=== PATIENT | female | born 1995 | race African-American/Black ===

== ENCOUNTER 2017-01-26 04:22 | Observation (INO) | payer OTHER ==
[~2017-01-26] VITALS: Ht 154.9 cm; Wt 46.7 kg
[2017-01-26 05:11] LABS: Basophils # (auto) 0 uL; Basophils % (auto) 0.2 % (0.0-2.0); Eosinophils # (auto) 0 uL; Hematocrit 33.7 % (36.0-46.0); Hemoglobin 11.5 g/dL (12.2-16.2); Lymphocytes # (auto) 1.6 uL; Lymphocytes % (auto) 9.6 % (10.0-50.0); Mean Corpuscular Hemoglobin 30.9 pg (28.0-32.0); Mean Corpuscular Hgb Conc. 34.2 g/dL (32.0-36.0); Mean Corpuscular Volume 90.4 fL (80.0-100.0); Mean Platelet Volume 8.3 fL (7.4-10.4); Monocytes % (auto) 5.9 % (0.0-12.0); Neutrophils # (auto) 13.7 uL; Neutrophils % (auto) 84.3 % (37.0-80.0); Platelet Count (auto) 396 10^3/uL (140-450); Red Cell Distribution Width 13.3 % (11.6-16.0); White Blood Cell 16.3 10^3/uL (4.4-10.8)
[2017-01-26 05:27] LABS: Albumin 3.4 g/dL (3.4-5.0); BUN/Creatinine Ratio 9.1; Calcium 8.4 mg/dL (8.5-10.1); Potassium 3.5 mmol/L (3.5-5.1)
[2017-01-26 05:29] LABS: Bilirubin, Total 0.7 mg/dL (0.2-1.0); Total Protein 6.5 g/dL (6.4-8.2)
[2017-01-26 05:53] LABS: Urine Bilirubin Negative (Negative); Urine Blood Negative /uL (Negative); Urine Color Yellow (Yellow); Urine Glucose Normal (Normal); Urine Mucus FEW (None Seen); Urine Nitrite Negative (Negative); Urine RBC 4 /hpf (0 - 4); Urine Squamous Epithelial Cell FEW /hpf (<5); Urine Urobilinogen Normal (Negative)
[2017-01-26 05:54] LABS: Urine Ketone 1+ (Negative)
[2017-01-26] MEDS ORDERED: HYDROmorphone HCL 2 MG/ML VL IV ONE ×2 (06:00→08:45)
[2017-01-26] MEDS ORDERED: ONDANSETRON HCL 4 MG/2 ML VIAL IV ONE (06:00)
[2017-01-26] MEDS ORDERED: SODIUM CHLORIDE 0.9% 1,000 ML IV ONE (07:20)
[2017-01-26] MEDS ORDERED: cefTRIAXone 1GM/50ML D5W 50 ML IV ONE (08:00)
[2017-01-26] MEDS ORDERED: PROMETHAZINE HCL 25 MG/ML 1ML IV ONE (08:45)
[2017-01-26 09:20] VITALS: BP 112/73
== END 2017-01-26 09:45 | disposition short-term general hospital (02) | DRG 395 ==
LOC: ER 04:29 → OVERFLOW 07:21 → ER 09:45
PROVIDERS: ADMIT Emergency Medicine; ATTEND Emergency Medicine
DX: K66.1 Hemoperitoneum (principal); N83.209 Unspecified ovarian cyst, unspecified side
CPT/HCPCS: 36415; 74176; 76705; 80053; 80307; 81001; 83690; 84702; 85025; 96361; 96365; 96375; 96376; 99285; G0378; J0696; J1170; J2405; J2550; J7030